=== PATIENT | male | born 1950 | race Caucasian/White ===

== ENCOUNTER 2018-11-23 12:50 | Emergency (ER) | payer MEDICARE ==
--- NOTE | 2018-11-23 13:46 | ER Document Report ---
ED Medical Screen (RME) - General Chief Complaint: Abdominal Pain Stated Complaint: UPSET STOMACH Time Seen by Provider: 11/23/18 13:43 Mode of Arrival: Ambulatory Information source: Patient Notes: 68-year-old male presented to ED for complaint of nausea times a week. He states he was vomited a lot yesterday but has not had emesis today. States it is very difficult to eat due to the nausea. He has a history of high blood pressure, prostate hyperplasia, chronic back pain. He takes Percocet but has not had any in a week takes Zofran and his blood pressure medications. He is a former smoker no longer smokes, states he no longer drinks alcohol. He states he does occasionally smoke weed. He does work at [employer] and lives with his family. He states he has not had a bowel movement since either Wednesday or Wednesday but that his normal. She is alert oriented respirations regular and unlabored walks with even steady gait. I have greeted and performed a rapid initial assessment of this patient. A comprehensive ED assessment and evaluation of the patient, analysis of test results and completion of medical decision making process will be conducted by an additional ED providers. Dictation of this chart was performed using voice recognition software; therefore, there may be some unintended grammatical errors. TRAVEL OUTSIDE OF THE [place] IN LAST 30 DAYS: No - Related Data Allergies/Adverse Reactions: No Known Allergies Allergy (Unverified 11/23/18 12:50) Home Medications: Zofran 8 mg tab q8h PRN. Pravastatin sodium 20 mg tab once daily. Potassium Chloride ER 10 mEq once daily. Carvedilol 12.5 mg BID with meals. Lisinopril 10 mg tab once daily. Percocet 10mg tab Past Medical History - Past Medical History Cardiac Medical History: Reports: Hx Congestive Heart Failure, Hx Hypercholesterolemia, Hx Hypertension Renal/ Medical History: Denies: Hx Peritoneal Dialysis Physical Exam - Vital signs Vitals: Temp Pulse Resp BP Pulse Ox 98.4 F 48 L 16 108/77 95 11/23/18 13:23 11/23/18 13:23 11/23/18 13:23 11/23/18 13:23 11/23/18 13:23 Course - Vital Signs Vital signs: Temp Pulse Resp BP Pulse Ox 98.4 F 48 L 16 108/77 95 11/23/18 13:23 11/23/18 13:23 11/23/18 13:23 11/23/18 13:23 11/23/18 13:23
--- NOTE | 2018-11-23 14:20 | RADIOLOGY REPORT (SQ) ---
EXAM DESCRIPTION: KUB/ABDOMEN (SINGLE VIEW) COMPLETED DATE/TIME: 11/23/2018 2:05 pm REASON FOR STUDY: Nausea no bowel movement in 2 days COMPARISON: None. NUMBER OF VIEWS: One view. TECHNIQUE: Supine radiographic image of the abdomen acquired. LIMITATIONS: None. FINDINGS: BOWEL GAS PATTERN: Normal bowel gas pattern. No dilated loops. CALCIFICATIONS: No suspicious calcifications. SOFT TISSUES: No gross mass or suggestion of organomegaly. HARDWARE: None in the abdomen. BONES: Marked lumbar spondylosis. OTHER: No other significant finding. IMPRESSION: NO RADIOGRAPHIC EVIDENCE FOR ACUTE ABDOMINAL DISEASE. TECHNICAL DOCUMENTATION: JOB ID: [id number] [employer]- All Rights Reserved Reading location - IP/workstation name: [email or web address]
[2018-11-23 14:39] LABS: APPEARANCE,URINE CLEAR; BILIRUBIN,URINE NEGATIVE (NEGATIVE); COLOR,URINE YELLOW; GLUCOSE, URINE NEGATIVE (NEGATIVE); KETONES,URINE NEGATIVE (NEGATIVE); LEUKOCYTE ESTERASE,URINE NEGATIVE (NEGATIVE); NITRITE,URINE NEGATIVE (NEGATIVE); PROTEIN,URINE NEGATIVE (NEGATIVE); URINE SPECIFIC GRAVITY 1.013; UROBILINOGEN,URINE NEGATIVE mg/dL (<2.0)
[2018-11-23 14:54] LABS: ALANINE AMINOTRANSFERASE 15 U/L (21-72); ALBUMIN 5.4 g/dL (3.5-5.0); ALKALINE PHOSPHATASE 94 U/L (38-126); ANION GAP 11 (5-19); ASPARTATE AMINO TRANSFERASE 19 U/L (17-59); BILIRUBIN,DIRECT 0.3 mg/dL (0.0-0.4); BILIRUBIN,TOTAL 0.8 mg/dL (0.2-1.3); BLOOD UREA NITROGEN 42 mg/dL (7-20); CALCIUM 9.9 mg/dL (8.4-10.2); CARBON DIOXIDE 28 mmol/L (22-30); CHLORIDE 100 mmol/L (98-107); GLUCOSE 106 mg/dL (75-110); POTASSIUM 4.8 mmol/L (3.6-5.0); TOTAL PROTEIN 8.8 g/dL (6.3-8.2)
[2018-11-23 15:01] LABS: ABSOLUTE EOSINOPHILS # (AUTO) 0.1 10^3/uL (0.0-0.6); ABSOLUTE LYMPHOCYTES (AUTO) 1.7 10^3/uL (0.5-4.7); ABSOLUTE MONOCYTES (AUTO) 0.4 10^3/uL (0.1-1.4); BASOPHILS % (AUTO) 0.4 % (0-2); EOSINOPHILS % (AUTO) 1.5 % (0-6); HEMATOCRIT 42.9 % (37.9-51.0); HEMOGLOBIN 14.6 g/dL (13.5-17.0); LYMPHOCYTES % (AUTO) 27.4 % (13-45); MEAN CORPUSCULAR HEMOGLOBIN 28.7 pg (27.0-33.4); MEAN CORPUSCULAR VOLUME 85 fl (80-97); MONOCYTES % (AUTO) 6.4 % (3-13); RED BLOOD COUNT 5.07 10^6/uL (4.35-5.55); RED CELL DISTRIBUTION WIDTH 13.4 % (11.5-14.0); SEGMENTED NEUTROPHILS % (AUTO) 64.3 % (42-78); TOTAL CELLS COUNTED % (AUTO) 100 %; WHITE BLOOD COUNT 6.2 10^3/uL (4.0-10.5)
[2018-11-23 15:23] LABS: PLATELET COUNT 199 10^3/uL (150-450)
[2018-11-23] MEDS ORDERED: NORMAL SALINE 500 ML IV ONE (17:34)
[2018-11-23] MEDS ORDERED: FAMOTIDINE INJ/PF 20 MG/2 ML SDV IV ONE (17:34)
[2018-11-23] MEDS ORDERED: ONDANSETRON HCL INJ/PF 4 MG/2 ML SDV IV ONE (17:35)
--- NOTE | 2018-11-23 17:37 | ER Document Report ---
ED General - General Chief Complaint: Abdominal Pain Stated Complaint: UPSET STOMACH Time Seen by Provider: 11/23/18 13:43 Primary Care Provider: AYDEN CRAMER MD [ACTIVE STAFF] - Follow up in 1 week (for GI follow up) Mode of Arrival: Ambulatory TRAVEL OUTSIDE OF THE [place] IN LAST 30 DAYS: No - HPI Notes: 68 year old male to the ED with C/O nausea and vomiting for one week. States that he has been vomiting quite a bit especially yesterday. States that the nausea is improved somewhat today but still pretty bad. Denies any abd pain, back pain, chest pain, SOB, diaphoresis, shoulder pain, headache, urinary complaints, fevers, chills. He has never had a heart attack. There is no family history of heart attack. He has been attempting zofran at home without improvement. States that sometimes this happens to him, but usually it resolves quicker. Also reports that he takes Percocet for chronic pain. He states he takes it only as needed and sometimes does not take it at all. He has not had a Percocet in one week due to the nausea and vomiting. He has a history of CHF, HTN, HLD. He is not diabetic. Former smoker. - Related Data Allergies/Adverse Reactions: No Known Allergies Allergy (Unverified 11/23/18 12:50) Home Medications: Zofran 8 mg tab q8h PRN. Pravastatin sodium 20 mg tab once daily. Potassium Chloride ER 10 mEq once daily. Carvedilol 12.5 mg BID with meals. Lisinopril 10 mg tab once daily. Percocet 10mg tab Past Medical History - General Information source: Patient - Social History Smoking Status: Former Smoker Frequency of alcohol use: None Drug Abuse: None Family History: Reviewed & Not Pertinent, Hypertension Patient has suicidal ideation: No Patient has homicidal ideation: No - Past Medical History Cardiac Medical History: Reports: Hx Congestive Heart Failure, Hx Hypercholesterolemia, Hx Hypertension Renal/ Medical History: Denies: Hx Peritoneal Dialysis Review of Systems - Review of Systems Constitutional: denies: Chills, Fever EENT: No symptoms reported Cardiovascular: denies: Chest pain, Dyspnea, Syncope, Dizziness, Lightheaded Respiratory: denies: Cough, Short of breath Gastrointestinal: Nausea, Vomiting. denies: Diarrhea Genitourinary: denies: Frequency, Flank pain, Hematuria Musculoskeletal: denies: Back pain Skin: No symptoms reported Hematologic/Lymphatic: No symptoms reported Neurological/Psychological: No symptoms reported -: Yes All other systems reviewed and negative Physical Exam - Vital signs Vitals: Temp Pulse Resp BP Pulse Ox 98.4 F 48 L 16 108/77 95 11/23/18 13:23 11/23/18 13:23 11/23/18 13:23 11/23/18 13:23 11/23/18 13:23 Interpretation: Normal - General General appearance: Appears well, Alert - HEENT Head: Normocephalic, Atraumatic Eyes: Normal Pupils: PERRL - Respiratory Respiratory status: No respiratory distress Chest status: Nontender Breath sounds: Normal Chest palpation: Normal - Cardiovascular Rhythm: Regular Heart sounds: Normal auscultation Murmur: No Notes: no leg swelling - Abdominal Inspection: Normal Distension: No distension Bowel sounds: Normal Tenderness: Nontender. No: McBurney's point, Romero's sign, Guarding, Rebound Organomegaly: No organomegaly - Back Back: Normal, Nontender - Extremities General lower extremity: No: Bi's sign - Neurological Neuro grossly intact: Yes Cognition: Normal Orientation: AAOx4 [place] Coma Scale Eye Opening: Spontaneous [place] Coma Scale Verbal: Oriented [place] Coma Scale Motor: Obeys Commands [place] Coma Scale Total: 15 Speech: Normal Motor strength normal: LUE, RUE, LLE, RLE Sensory: Normal - Psychological Associated symptoms: Normal affect, Normal mood - Skin Skin Temperature: Warm Skin Moisture: Dry Skin Color: Normal Course - Re-evaluation Re-evalutation: Noted lab work -- will add other labs as well. Give his nausea and vomiting, will obtain EKG and cardiac panel. Will also obtain CT abd;pel to evaluate for any intraabdominal process. Will gently hydrate. Will give antiemetics. patient agrees with the plan. Noted cardiac enzymes which are negative and reassuring. CT abd/pelv with no acute abnormalities. Will PO challenge patient Patient tolerated PO challenge, states he feels better after fluids and antiemetics. noted CR and BUN -- mostly suggestive of dehydration but do not have a comparison. Patient is requesting discharge as he is feeling better. Will discharge home, have urged him to return immediately if symptoms worsen at all with chest pain, SOB, intractable vomiting, fevers, or any other concerns. Patient agrees with the plan. Laboratory 11/23/18 11/23/18 11/23/18 14:15 14:15 14:15 WBC 6.2 RBC 5.07 Hgb 14.6 Hct 42.9 MCV 85 MCH 28.7 MCHC 34.0 RDW 13.4 Plt Count 199 Seg Neutrophils % 64.3 Lymphocytes % 27.4 Monocytes % 6.4 Eosinophils % 1.5 Basophils % 0.4 Absolute Neutrophils 4.0 Absolute Lymphocytes 1.7 Absolute Monocytes 0.4 Absolute Eosinophils 0.1 Absolute Basophils 0.0 Sodium 138.9 Potassium 4.8 Chloride 100 Carbon Dioxide 28 Anion Gap 11 BUN 42 H Creatinine 1.51 H Est GFR ( Amer) 56 L Est GFR (Non-Af Amer) 46 L Glucose 106 Calcium 9.9 Total Bilirubin 0.8 Direct Bilirubin 0.3 Neonat Total Bilirubin Not Reportable Neonat Direct Bilirubin Not Reportable Neonat Indirect Bili Not Reportable AST 19 ALT 15 L Alkaline Phosphatase 94 Creatine Kinase CK-MB (CK-2) Troponin I Total Protein 8.8 H Albumin 5.4 H Urine Color YELLOW Urine Appearance CLEAR Urine pH 5.0 Ur Specific [place] 1.013 Urine Protein NEGATIVE Urine Glucose (UA) NEGATIVE Urine Ketones NEGATIVE Urine Blood NEGATIVE Urine Nitrite NEGATIVE Urine Bilirubin NEGATIVE Urine Urobilinogen NEGATIVE Ur Leukocyte Esterase NEGATIVE Urine WBC (Auto) 1 U Hyaline Cast (Auto) 3 Urine Mucus (Auto) RARE Urine Ascorbic Acid NEGATIVE 11/23/18 11/23/18 14:15 14:15 WBC RBC Hgb Hct MCV MCH MCHC RDW Plt Count Seg Neutrophils % Lymphocytes % Monocytes % Eosinophils % Basophils % Absolute Neutrophils Absolute Lymphocytes Absolute Monocytes Absolute Eosinophils Absolute Basophils Sodium Potassium Chloride Carbon Dioxide Anion Gap BUN Creatinine Est GFR ( Amer) Est GFR (Non-Af Amer) Glucose Calcium Total Bilirubin Direct Bilirubin Neonat Total Bilirubin Neonat Direct Bilirubin Neonat Indirect Bili AST ALT Alkaline Phosphatase Creatine Kinase 76 CK-MB (CK-2) 1.27 Troponin I < 0.012 Total Protein Albumin Urine Color Urine Appearance Urine pH Ur Specific [place] Urine Protein Urine Glucose (UA) Urine Ketones Urine Blood Urine Nitrite Urine Bilirubin Urine Urobilinogen Ur Leukocyte Esterase Urine WBC (Auto) U Hyaline Cast (Auto) Urine Mucus (Auto) Urine Ascorbic Acid KUB X-Ray 11/23/18 13:44 IMPRESSION: NO RADIOGRAPHIC EVIDENCE FOR ACUTE ABDOMINAL DISEASE. Abdomen/Pelvis CT 11/23/18 17:36 IMPRESSION: No acute finding in the abdomen or pelvis. Uncomplicated inguinal hernia. - Vital Signs Vital signs: Temp Pulse Resp BP Pulse Ox 98.2 F 97 16 110/78 93 11/23/18 20:32 11/23/18 20:32 11/23/18 13:23 11/23/18 20:32 11/23/18 20:32 - Laboratory Result Diagrams: 11/23/18 14:15 11/23/18 14:15 Laboratory results interpreted by me: 11/23/18 14:15 BUN 42 H Creatinine 1.51 H Est GFR ( Amer) 56 L Est GFR (Non-Af Amer) 46 L ALT 15 L Total Protein 8.8 H Albumin 5.4 H - Diagnostic Test Radiology reviewed: Image reviewed, Reports reviewed - EKG Interpretation by Me EKG shows normal: Sinus rhythm Rate: Normal Rhythm: NSR When compared to previous EKG there are: Previous EKG unavailable Additional EKG results interpreted by me: NO STEMI, no t wave inversions, incomplete LBBB Discharge - Discharge Clinical Impression: Nausea & vomiting Qualifiers: Vomiting type: unspecified Vomiting Intractability: non-intractable Qualified Code(s): R11.2 - Nausea with vomiting, unspecified Condition: Stable Disposition: HOME, SELF-CARE Instructions: Vomiting ([facility]) Additional Instructions: FOLLOW UP WITH PRIMARY CARE IN 2 DAYS. RETURN IF WORSE AND CANNOT STOP VOMITING, ABDOMINAL PAIN, CHEST PAIN, SHORTNESS OF BREATH. TAKE MEDICINE PRESCRIBED> PUSH FLUIDS. Prescriptions: Ondansetron [Zofran Odt 4 mg Tablet] 1 - 2 tab PO Q4HP PRN #10 tab.rapdis PRN Reason: Sucralfate [Carafate] 1 gm PO QID #420 ml Referrals: AYDEN CRAMER MD [ACTIVE STAFF] - Follow up in 1 week (for GI follow up)
[2018-11-23 18:18] LABS: CREATINE KINASE 76 U/L (55-170)
[2018-11-23 18:42] LABS: CREATINE KINASE MB 1.27 ng/mL (<4.55)
[2018-11-23 18:45] LABS: TROPONIN I < 0.012 ng/mL
--- NOTE | 2018-11-23 18:50 | RADIOLOGY REPORT (SQ) ---
EXAM DESCRIPTION: CT ABD/PELVIS WITH IV ONLY COMPLETED DATE/TIME: 11/23/2018 6:36 pm REASON FOR STUDY: nausea, vomiting COMPARISON: None. TECHNIQUE: CT scan of the abdomen and pelvis performed using helical scanning technique with dynamic intravenous contrast injection. No oral contrast. Images reviewed with lung, soft tissue, and bone windows. Reconstructed coronal and sagittal MPR images reviewed. Delayed images for evaluation of the urinary system also acquired. All images stored on PACS. All CT scanners at this facility use dose modulation, iterative reconstruction, and/or weight based d osing when appropriate to reduce radiation dose to as low as reasonably achievable (ALARA). [facility]: Dose Right [facility]: CareDose [facility]: Dose Right [facility]: Teradose 4D [facility]: [employer] CONTRAST TYPE AND DOSE: contrast/concentration: Isovue 350.00 mg/ml; Total Contrast Delivered: 100.0 ml; Total Saline Delivered: 72.0 ml RENAL FUNCTION: BUN 42 creatinine 1.5 RADIATION DOSE: CT Rad equipment meets quality standard of care and radiation dose reduction techniq ues were employed. CTDIvol: 17.1 - 19.8 mGy. DLP: 1970 mGy-cm.. LIMITATIONS: None. FINDINGS: LOWER CHEST: No significant findings. There is calcified pulmonary granuloma at the right hemidiaphragm. LIVER: Normal size. No masses. No dilated ducts. SPLEEN: Normal size. No focal lesions. PANCREAS: No masses. No significant calcifications. No adjacent inflammation or peripancreatic fluid collections. Pancreatic duct not dilated. GALLBLADDER: No identified stones by CT criteria. No inflammatory changes to suggest cholecystitis. ADRENAL GLANDS: No significant masses or asymmetry. RIGHT KIDNEY AND URETER: No solid masses. No significant calcifications. No hydronephrosis or hyd roureter. LEFT KIDNEY AND URETER: No solid masses. No significant calcifications. No hydronephrosis or hydr oureter. AORTA AND VESSELS: No aneurysm. No dissection. Renal arteries, SMA, celiac without stenosis. RETROPERITONEUM: No retroperitoneal adenopathy, hemorrhage or masses. BOWEL AND PERITONEAL CAVITY: No masses or inflammatory changes. No free fluid or peritoneal masses. APPENDIX: Not identified. PELVIS: No mass. No free fluid. Normal bladder. ABDOMINAL WALL: Uncomplicated left inguinal hernia containing fat. BONES: No significant or acute findings. OTHER: No other significant finding. IMPRESSION: No acute finding in the abdomen or pelvis. Uncomplicated inguinal hernia. TECHNICAL DOCUMENTATION: JOB ID: [id number] Quality ID # [id number]: Final reports with documentation of one or more dose reduction techniques (e.g., Au tomated exposure control, adjustment of the mA and/or kV according to patient size, use of iterative reconstruction technique) 2010 [employer]- All Rights Reserved Reading location - IP/workstation name: [email or web address]
[2018-11-23 20:34] VITALS: BP 110/78
--- NOTE | 2018-11-23 23:48 | EKG REPORT ---
SEVERITY:- ABNORMAL ECG - SINUS RHYTHM INCOMPLETE LEFT BUNDLE BRANCH BLOCK : Confirmed by: Matilde Pérez 23-Nov-2018 23:48:06
== END 2018-11-23 20:34 | disposition home or self-care (01) ==
LOC: ER 12:50
DX: R11.2 Nausea with vomiting, unspecified (principal); K40.90 Unilateral inguinal hernia, without obstruction or gangrene, not specified as recurrent; I44.7 Left bundle-branch block, unspecified; E78.5 Hyperlipidemia, unspecified; E78.00 Pure hypercholesterolemia, unspecified; I10 Essential (primary) hypertension; G89.29 Other chronic pain; Z79.899 Other long term (current) drug therapy; Z87.891 Personal history of nicotine dependence
CPT/HCPCS: 93005; 99284; 96361; 96374; 96375; 36415; 82553; 82550; 85025; 80053; 81001; 84484; 74018; 74177; 93010; J2405; J7040; S0028